=== PATIENT | female | born 1990 | race Caucasian/White ===

== ENCOUNTER 2017-05-29 16:21 | Emergency (ER) | payer MEDICAID, OTHER ==
[2017-05-29 16:48] VITALS: BP 125/79
--- NOTE | 2017-05-29 17:15 | UC ---
Skin Complaint HPI - HPI Summary HPI Summary: pt c/o skin "irritation" right lateral hip and upper thigh that began three weeks ago. Pt reports that began as red irritated, "raw" looking in the fold of skin that has resolved , tender area in fold of skin on right hip. Pt is obese, and reports that the skin has improved in the last 2 weeks. - History of Current Complaint Chief Complaint: UCSkin Time Seen by Provider: 05/29/17 17:05 Stated Complaint: LEFT HIP SKIN COMPLAINT Hx Obtained From: Patient Hx Last Menstrual Period: 05/10/17 ?: No Onset/Duration: Gradual Onset, Lasting Weeks, Other - improved since initial onset Skin Exposure Onset/Duration: Weeks Ago Timing: Constant Onset Severity: Moderate Current Severity: Mild Location: Discrete - left hip and upper thigh Character: Redness Aggravating Factor(s): Touch Alleviating Factor(s): OTC Creams/Salves Associated Signs & Symptoms: Positive: Tenderness - Allergy/Home Medications Allergies/Adverse Reactions: Allergies Allergy/AdvReac Type Severity Reaction Status Date / Time Amoxicillin [From Augmentin] Allergy Rash Verified 05/29/17 16:48 Clavulanic Acid Allergy Rash Verified 05/29/17 16:48 [From Augmentin] Home Medications: Home Medications Omeprazole CAP* [Prilosec CAP* 20 MG] 20 mg PO DAILY 05/29/17 [History Confirmed 05/29/17] Review of Systems Constitutional: Negative Skin: Rash Eyes: Negative ENT: Negative Respiratory: Negative Cardiovascular: Negative Gastrointestinal: Negative Genitourinary: Negative Motor: Negative Neurovascular: Negative Musculoskeletal: Negative Neurological: Negative Psychological: Negative Is Patient Immunocompromised?: No All Other Systems Reviewed And Are Negative: Yes PMH/Surg Hx/FS Hx/Imm Hx Previously Healthy: Yes - Surgical History Surgical History: Yes Surgery Procedure, Year, and Place: 2 c sections - Family History Known Family History: Positive: Cardiac Disease - Social History Occupation: Employed Full-time Lives: With Family Alcohol Use: Occasionally Substance Use Type: None Smoking Status (MU): Never Smoked Tobacco Have You Smoked in the Last Year: No Physical Exam Triage Information Reviewed: Yes Appearance: Well-Appearing Vital Signs: Initial Vital Signs Temp 98.5 F 05/29/17 16:43 Pulse 85 05/29/17 16:43 Resp 17 05/29/17 16:43 BP 125/79 05/29/17 16:43 Pulse Ox 100 05/29/17 16:43 Vital Signs Reviewed: Yes Eye Exam: Normal Neck exam: Normal Respiratory Exam: Normal Cardiovascular Exam: Normal Neurological Exam: Normal Psychological Exam: Normal Skin Exam: Other Skin: Positive: rashes - mild confluent erythema, to left lateral hip and upper thigh, non tender Course/Dx - Differential Diagnoses - Skin Complaint Differential Diagnoses: Cellulitis, Tinea - Diagnoses Provider Diagnoses: tinea, left lateral hip Discharge - Discharge Plan Condition: Stable Disposition: HOME Prescriptions: Terbinafine HCl (Topical) [Antifungal Foot] 1 % EX Q12H #1 tube Patient Education Materials: Skin Yeast Infection (ED) Referrals: BEATRIZ Rogel [Primary Care Provider] - If Needed
== END 2017-05-29 17:20 | disposition home or self-care (01) ==
LOC: UCCORT 16:21
DX: B35.9 Dermatophytosis, unspecified (principal); E66.9 Obesity, unspecified; Z88.3 Allergy status to other anti-infective agents
CPT/HCPCS: 99202; G0463

== ENCOUNTER 2017-07-18 11:14 | Emergency (ER) | payer MEDICAID ==
[2017-07-18 11:38] VITALS: BP 109/68
--- NOTE | 2017-07-18 11:41 | UC ---
Respiratory Complaint HPI - HPI Summary HPI Summary: 26 year old female presents with complains of cough, runny nose, and sore throat. - History of Current Complaint Chief Complaint: UCRespiratory Stated Complaint: cough Time Seen by Provider: 07/18/17 11:41 Hx Obtained From: Patient Hx Last Menstrual Period: 05/10/17 Onset/Duration: Sudden Onset Severity Initially: Moderate Severity Currently: Moderate - Allergies/Home Medications Allergies/Adverse Reactions: Allergies Allergy/AdvReac Type Severity Reaction Status Date / Time Clavulanic Acid Allergy Rash Verified 07/18/17 11:31 [From Augmentin] Home Medications: Home Medications Acetaminophen [Acetaminophen Extra Stren] 500 mg PO Q4H PRN 07/18/17 [History Confirmed 07/18/17] Vitamin TAB* 1 tab PO DAILY 07/18/17 [History Confirmed 07/18/17] PMH/Surg Hx/FS Hx/Imm Hx Previously Healthy: Yes - Surgical History Surgical History: Yes Surgery Procedure, Year, and Place: C-Sections, 2007 2009, [place] - Family History Known Family History: Positive: Cardiac Disease - Social History Alcohol Use: None Substance Use Type: None Smoking Status (MU): Never Smoked Tobacco Have You Smoked in the Last Year: No - Immunization History Most Recent Influenza Vaccination: June 2017 Review of Systems Constitutional: Negative Skin: Negative Eyes: Negative ENT: Sore Throat, Nasal Discharge, Sinus Congestion, Sinus Pain/Tenderness Respiratory: Negative Cardiovascular: Negative Gastrointestinal: Negative Genitourinary: Negative Motor: Negative Neurovascular: Negative Musculoskeletal: Negative Neurological: Negative Psychological: Negative All Other Systems Reviewed And Are Negative: Yes Physical Exam Triage Information Reviewed: Yes Vital Signs: Initial Vital Signs Temp 36.7 C 07/18/17 11:29 Pulse 93 07/18/17 11:29 Resp 22 07/18/17 11:29 BP 109/68 07/18/17 11:29 Pulse Ox 100 07/18/17 11:29 Vital Signs Reviewed: Yes Eye Exam: Normal ENT: Positive: Pharyngeal erythema, Nasal congestion, Nasal drainage, Sinus tenderness Dental Exam: Normal Neck exam: Normal Neck: Positive: 1 Respiratory Exam: Normal Cardiovascular Exam: Normal Abdominal Exam: Normal Musculoskeletal Exam: Normal Neurological Exam: Normal Psychological Exam: Normal Skin Exam: Normal UC Diagnostic Evaluation - Laboratory O2 Sat by Pulse Oximetry: 100 Respiratory Course/Dx - Differential Dx/Diagnosis Provider Diagnoses: allergic rhinitis Discharge - Discharge Plan Condition: Stable Disposition: HOME Prescriptions: Albuterol HFA INHALER* [Ventolin HFA Inhaler*] 1 puff INH Q6H PRN #1 mdi PRN Reason: Wheezing Amoxicillin PO (*) [Amoxicillin 500 MG CAP*] 500 mg PO TID #21 cap LoraTADine TAB(NF) [Claritin 10 MG TAB(NF)] 10 mg PO DAILY #30 tab Patient Education Materials: Allergic Rhinitis (ED) Referrals: BEATRIZ Rogel [Primary Care Provider] -
== END 2017-07-18 11:53 | disposition home or self-care (01) ==
LOC: UCCORT 11:14
DX: J30.9 Allergic rhinitis, unspecified (principal)
CPT/HCPCS: 99212; G0463

== ENCOUNTER 2019-06-02 14:28 | Emergency (ER) | payer OTHER ==
[2019-06-02 14:52] VITALS: BP 118/70
--- NOTE | 2019-06-02 15:13 | UC ---
Abdominal Pain Female HPI - HPI Summary HPI Summary: 28-year-old obese female presents with 4 day history of left upper quadrant epigastric pain that radiates through to her left mid back. States pain is a constant dull ache however increases in intensity and sharp in nature. Tends to worsen after eating. Yesterday had several episodes of loose stools. Reports she just finished taking the Z-Charlie at the onset of symptoms. Denies fever, chills, chest pain, palpitations, shortness of breath, nausea, vomiting, blood in stool, melena, dysuria, frequency, urgency, or hematuria. - History of Current Complaint Chief Complaint: UCGeneralIllness Stated Complaint: L SIDE ABD PAIN Time Seen by Provider: 06/02/19 15:02 Hx Obtained From: Patient Hx Last Menstrual Period: end of October-uterine ablation Pain Intensity: 6 Allergies/Adverse Reactions: Allergies Allergy/AdvReac Type Severity Reaction Status Date / Time MS Clavulanic Acid Allergy Rash Verified 06/02/19 14:52 [From Augmentin] Home Medications: Home Medications Magnesium [Magnesium Elemental] 30 mg PO DAILY 06/02/19 [History] Riboflavin (Vitamin B2) [Vitamin B-2] 25 mg PO BID 06/02/19 [History Confirmed 06/02/19] PMH/Surg Hx/FS Hx/Imm Hx Previously Healthy: Yes - Denies significant PMH - Surgical History Surgical History: Yes Surgery Procedure, Year, and Place: C-Sections x3,[place], tubal ligation, and fallopian tube removed - Family History Known Family History: Positive: Cardiac Disease - Social History Occupation: Unemployed Lives: With Family Alcohol Use: Rare Substance Use Type: None Smoking Status (MU): Never Smoked Tobacco Have You Smoked in the Last Year: No - Immunization History Most Recent Influenza Vaccination: June 2017 Review of Systems All Other Systems Reviewed And Are Negative: Yes Constitutional: Negative: Fever, Chills Skin: Negative: Rash ENT: Negative: Sore Throat Respiratory: Negative: Shortness Of Breath Cardiovascular: Negative: Chest Pain Gastrointestinal: Positive: Abdominal Pain, Diarrhea. Negative: Vomiting, Nausea Genitourinary: Negative: Dysuria, Hematuria, Frequency, Urgency, Vaginal/Penile Discharge, Abnormal Bleeding Musculoskeletal: Positive: Negative Neurological: Positive: Negative Is Patient Immunocompromised?: No Physical Exam - Summary Physical Exam Summary: GENERAL APPEARANCE: Alert and cooperative obese female who appears to be in no acute distress. EYES: Conjunctiva clear. No drainage. EARS: External auditory canals and tympanic membranes clear, hearing grossly intact. NOSE: No nasal discharge. THROAT: Pharynx normal No tonsilar inflammation, swelling, exudate, or lesions. Uvula midline. NECK: Neck supple, non-tender without lymphadenopathy. CARDIAC: Normal S1 and S2. No S3, S4 or murmurs. Rhythm is regular. There is no peripheral edema, cyanosis or pallor. Extremities are warm and well perfused. Capillary refill is less than 2 seconds. Peripheral pulses intact. LUNGS: Clear to auscultation without rales, rhonchi, wheezing or diminished breath sounds. ABDOMEN: Positive bowel sounds. Soft, nondistended. Mild epigastric tenderness without guarding or rebound. No masses or hepatosplenomegally. No CVA tenderness. MUSKULOSKELETAL: ROM intact to all extremities. No joint erythema or tenderness. Normal muscular development. Normal gait. SKIN: Skin normal color, texture and turgor with no lesions or eruptions. Triage Information Reviewed: Yes Vital Signs: Initial Vital Signs Temp 97.1 F 06/02/19 14:44 Pulse 101 06/02/19 14:44 Resp 18 06/02/19 14:44 BP 118/70 06/02/19 14:44 Pulse Ox 100 06/02/19 14:44 Vital Signs Reviewed: Yes Abd Pain Female Course/Dx - Course Course Of Treatment: 28-year-old obese female presents with 4 day history of left upper quadrant epigastric pain that radiates through to her left mid back. States pain is a constant dull ache however increases in intensity and sharp in nature. Tends to worsen after eating. Yesterday had several episodes of loose stools. Reports she just finished taking the Z-Charlie at the onset of symptoms. Denies fever, chills, chest pain, palpitations, shortness of breath, nausea, vomiting, blood in stool, melena, dysuria, frequency, urgency, or hematuria. Afebrile. Has a tachycardic otherwise vital signs stable. Patient had a soft nondistended abdomen, some mild epigastric tenderness without guarding or rebound, no CVA tenderness, otherwise unremarkable exam. [id number] urinalysis and urine were both negative. Reviewed results with the patient. I discussed with the patient at with her history of recently completing a azithromycin that her symptoms could likely be a side effect from this medication however I cannot fully rule out the possibility of another cause such as peptic ulcer disease and therefore recommend placing her on pantoprazole 40 mg daily 2 weeks to see if this helps with her symptoms. She is to follow-up with her primary care provider in 3 days if symptoms do not improve. And his respiratory guidance and warning symptoms were reviewed with the patient. Verbalized understanding and agrees with plan of care. - Differential Dx/Diagnosis Differential Diagnosis: Ectopic , Peptic Ulcer Disease, Renal Colic, Urinary Tract Infection, Other - Medication induced Provider Diagnosis: LUQ abdominal pain Discharge ED - Sign-Out/Discharge Documenting (check all that apply): Patient Departure All imaging exams completed and their final reports reviewed: No Studies - Discharge Plan Condition: Stable Disposition: HOME Prescriptions: Pantoprazole TAB * [Protonix TAB*] 40 mg PO DAILY #14 tab Patient Education Materials: Acute Abdominal Pain (ED) Referrals: Camron Riley MD [Primary Care Provider] - 3 Days Additional Instructions: I am unable to determine the exact cause of your abdominal pain however it is most likely a side effect of the azithromycin you are taking or possibly peptic ulcer disease considering the location and description of the pain. Start pantoprazole 40 mg daily 2 weeks to see if this improves her symptoms. Avoid fatty foods, spicy foods, and alcohol as these can sometimes worsen symptoms. Follow-up with your primary care provider in 3 days if symptoms are not improving. Seek immediate medical attention in the emergency room if you develop fever greater than 100.5 F, have worsening abdominal pain, persistent or projectile vomiting, blood in your vomit or stool, dark black stools, or any worsening of your symptoms. - Billing Disposition and Condition Condition: STABLE Disposition: Home - Attestation Statements Provider Attestation: Per institutional requirements, I have reviewed the chart, however, I was not consulted specifically or made aware of this patient by the midlevel provider. I did not personally evaluate, interact with , or disposition this patient.
== END 2019-06-02 15:39 | disposition home or self-care (01) ==
LOC: UCCORT 14:28
DX: R10.11 Right upper quadrant pain (principal); R10.13 Epigastric pain; Z88.0 Allergy status to penicillin
CPT/HCPCS: 81003; 84702; 99212; G0463

== ENCOUNTER 2019-09-26 17:35 | Emergency (ER) | payer OTHER ==
[2019-09-26 17:57] VITALS: BP 115/85
--- NOTE | 2019-09-26 18:08 | UC ---
Respiratory Complaint HPI - HPI Summary HPI Summary: Patient is a 28 year old female , who present today to the urgent care with sinus pressure and congestion for past 4 days. Associated post nasal drainage . Now noted some chest congestion and cough started today. Reports sore throat and Cough is dry. Symptoms getting worse No fevers. No abdominal pain, nausea or vomiting. - History of Current Complaint Chief Complaint: UCGeneralIllness Stated Complaint: COUGH, CONGESTION Time Seen by Provider: 09/26/19 17:55 Hx Obtained From: Patient Hx Last Menstrual Period: uterine ablation Pain Intensity: 6 - Allergies/Home Medications Allergies/Adverse Reactions: Allergies Allergy/AdvReac Type Severity Reaction Status Date / Time amoxicillin [From Augmentin] Allergy Intermediate Rash Verified 09/26/19 17:57 clavulanic acid Allergy Intermediate Rash Verified 09/26/19 17:57 [From Augmentin] Home Medications: Home Medications NK [No Home Medications Reported] 09/26/19 [History Confirmed 09/26/19] PMH/Surg Hx/FS Hx/Imm Hx - Additional Past Medical History Additional PMH: Past Medical History : Lyme disease Past Surgical History: x 3 , tubal ligation, uterine ablation, fallopian tube removal Family History : non contributory Social History : Occasional alcohol, non smoker, no drug use. Previously Healthy: Yes - Surgical History Surgical History: Yes Surgery Procedure, Year, and Place: C-Sections x3,[place], tubal ligation, and fallopian tube removed, uterine ablation - Family History Known Family History: Positive: Cardiac Disease, Non-Contributory - Social History Alcohol Use: Occasionally Substance Use Type: None Smoking Status (MU): Never Smoked Tobacco Have You Smoked in the Last Year: No - Immunization History Most Recent Influenza Vaccination: June 2017 Review of Systems All Other Systems Reviewed And Are Negative: Yes Constitutional: Positive: Negative. Negative: Fever Skin: Positive: Negative Eyes: Positive: Negative ENT: Positive: Sore Throat, Sinus Congestion, Sinus Pain/Tenderness Respiratory: Positive: Cough - dry Cardiovascular: Positive: Negative Gastrointestinal: Positive: Negative Genitourinary: Positive: Negative Motor: Positive: Negative Neurovascular: Positive: Negative Musculoskeletal: Positive: Negative Neurological: Positive: Negative Psychological: Positive: Negative Is Patient Immunocompromised?: No Physical Exam - Summary Physical Exam Summary: Physical Exam: Const: Appears well. No signs of apparent distress present. Alert and oriented x 3. Musculo: Walks with a normal gait. Head/Face: Atraumatic, normocephalic on inspection. Eyes: EOMI and PERRLA in both eyes. Conjunctivae clear. No discharge noted ENT: Hearing normal, TM normal appearing bilaterally, non bulging , non erythematous . No tenderness to palpation on maxillary and frontal sinus. Mild pharyngeal erythema without any exudates . Uvula is midline. No cervical or submandibular lymphadenopathy noted. Respiratory: Respirations are unlabored. Lungs clear to auscultation bilaterally, no wheezing , rhonchi or rales noted . CVS: Regular rate and Rhythm, S1S2 normal , no murmurs identified. Extremities: Peripheral circulation is grossly normal. Pulses 2+ Abdomen : Soft non tender , nondistended , Bowel sounds present . No guarding , rebound tenderness or rigidity noted. Skin: No lesions or rash located on the upper extremities or on the lower extremities. Neuro: Cranial nerves II to XII intact, motor and sensory intact. DTR Intact bilaterally. Mood is normal. Affect is normal. Triage Information Reviewed: Yes Vital Signs: Initial Vital Signs Temp 98 F 09/26/19 17:54 Pulse 89 09/26/19 17:54 Resp 20 09/26/19 17:54 BP 115/85 09/26/19 17:54 Pulse Ox 100 09/26/19 17:54 Vital Signs Reviewed: Yes Respiratory Course/Dx - Course Course Of Treatment: Rapid strep test is negative - Differential Dx/Diagnosis Provider Diagnosis: Acute viral syndrome Discharge ED - Sign-Out/Discharge Documenting (check all that apply): Patient Departure All imaging exams completed and their final reports reviewed: No Studies - Discharge Plan Condition: Stable Disposition: HOME Patient Education Materials: Viral Syndrome (ED) Referrals: Camron Riley MD [Primary Care Provider] - 2 Days Additional Instructions: Maintain Hydration acetaminophen (Tylenol) or ibuprofen (Advil, Motrin) as needed for pain or fever. Use salt water gargles several times a day if you have a sore throat. You may also use Chloraseptic spray or Cepacol lonzenges according to directions which contain a numbing medication and can provide some temporary relief from your sore throat.. Follow up with your primary care doctor in 2 days. Return to Urgent care / ER if symptoms get worse. - Billing Disposition and Condition Condition: STABLE Disposition: Home
== END 2019-09-26 19:19 | disposition home or self-care (01) ==
LOC: UCCORT 17:35
DX: B34.9 Viral infection, unspecified (principal); J02.9 Acute pharyngitis, unspecified; R05 Cough; J34.89 Other specified disorders of nose and nasal sinuses; Z88.0 Allergy status to penicillin
CPT/HCPCS: 87651; 99211; G0463